=== PATIENT | male | born 2000 | race Caucasian/White ===

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

== ENCOUNTER 2020-06-17 18:37 | Emergency (ER) | payer SELFPAY ==
[~2020-06-17 18:37] MED LIST changes: +LORTAB 1010 MG PO
== END 2020-06-17 18:41 | disposition left against medical advice (07) | DRG 951 ==
LOC: ED 18:37 → LWOBS 18:40
DX: Z53.21 Procedure and treatment not carried out due to patient leaving prior to being seen by health care provider (principal)